=== PATIENT | female | born 1995 | race African-American/Black ===

== ENCOUNTER 2017-12-08 17:10 | Emergency (ER) | payer OTHER ==
[~2017-12-08] VITALS: Ht 162.6 cm; Wt 72.6 kg
[~2017-12-08 17:10] MED LIST: BACTRIM DS 8001 TAB PO; CYCLOBENZAPRINE10 M1 PO; PERCOCET 325 MG1 TA2 PO; ZITHROMAX250 M2 PO
[2017-12-08 18:04] LABS: ABSOLUTE BASOPHIL COUNT 0.1 /CUMM (0.0-0.2); ABSOLUTE EOSINOPHIL COUNT 0.1 /CUMM (0.0-0.7); ABSOLUTE GRANULOCYTE CT 5.1 /CUMM (1.4-6.5); ABSOLUTE MONOCYTE COUNT 0.6 /CUMM (0.10-0.60); BASOPHIL % 0.6 % (0.0-2.0); EOSINOPHIL % 0.7 % (0-5); GRANULOCYTE % 54.3 % (42.2-75.2); HEMATOCRIT 37.8 % (37-47); MEAN CORPUSCULAR HGB 27.9 PG (27.0-31.0); MEAN CORPUSCULAR HGB CONC 33.7 G/DL (33.0-37.0); MEAN CORPUSCULAR VOLUME 82.6 FL (81.0-99.0); MEAN PLATELET VOLUME 8.6 FL (7.4-10.4); PLATELET COUNT 231 /CUMM (130-400); RBC DISTRIBUTION WIDTH 14.9 % (11.5-14.5); RED BLOOD CELL CT 4.57 /CUMM (4.20-5.40); WHITE BLOOD CELL COUNT 9.3 /CUMM (4.8-10.8)
[2017-12-08 18:05] LABS: ABSOLUTE LYMPH COUNT 3.6 /CUMM (1.2-3.4)
--- NOTE | 2017-12-08 18:15 | ED GI/GU/ABDOMINAL COMPLAINT ---
History of Present Illness General Chief Complaint: General Adult Stated Complaint: PT STOMACH PAIN BACK,NAUSEA, Source: patient, old records Exam Limitations: no limitations Vital Signs & Intake/Output Vital Signs & Intake/Output Vital Signs Date Time Temp Pulse Resp B/P B/P Pulse O2 O2 Flow FiO2 Mean Ox Delivery Rate 12/08 2012 98.4 87 20 129/80 98 Room Air 12/08 1823 100 18 138/66 100 Room Air 12/08 1820 Room Air 12/08 1730 96.7 115 15 133/85 99 Room Air Room Air Allergies Coded Allergies: No Known Allergies (12/08/17) Reconcile Medications No Known Home Medications Triage Note: PT TO ED FOR C/C OF LOWER ABD PAIN X 3 DAYS WITH NAUSEA AND VOMITING. REPORTS POSSIBLE CHANCE OF . REPORTS FEELING CONSTIPATED AND INCREASED FREQUENCY OF URINATION. Triage Nurses Notes Reviewed? yes ? N Is pt currently ? No HPI: Patient presents with 2 complaints. First complaint is a migraine headache that she has had for the past 5 days. The pain is throbbing in nature. The pain is constant. Through radiation. There are no aggravating or mitigating factors. She rates the pain at 6 out of 10. Her the complaint is suprapubic crampy pain that she's been having since yesterday. She has had nausea with one episode of vomiting over the past 3 days. She states that she gets nauseous after she eats anything. The crampy pain started yesterday and it is in the suprapubic area. There is no radiation. There are no aggravating or mitigating factors. Patient states that she has a history of ovarian cyst and is concerned that that is what is causing the pain. Past History Travel History Traveled to [place] past 21 day No Medical History Any Pertinent Medical History? see below for history Neurological: NONE EENT: NONE Cardiovascular: NONE Respiratory: NONE Gastrointestinal: NONE Hepatic: NONE Renal: NONE Musculoskeletal: NONE Psychiatric: NONE Endocrine: NONE Blood Disorders: NONE Cancer(s): NONE [employer]/Reproductive: OVARIAN CYST Surgical History Surgical History: non-contributory, N Psychosocial History What is your primary language Palauan Tobacco Use: Never used ETOH Use: denies use Illicit Drug Use: denies illicit drug use Family History Hx Contributory? No Review of Systems Review of Systems Constitutional: Reports: no symptoms. EENTM: Reports: no symptoms. Respiratory: Reports: no symptoms. Cardiovascular: Reports: no symptoms. GI: Reports: see HPI, abdominal pain, nausea, vomiting. Genitourinary: Reports: no symptoms. Musculoskeletal: Reports: no symptoms. Skin: Reports: no symptoms. Neurological/Psychological: Reports: see HPI, headache. Hematologic/Endocrine: Reports: no symptoms. Immunologic/Allergic: Reports: no symptoms. All Other Systems: Reviewed and Negative Physical Exam Physical Exam General Appearance: well developed/nourished, alert, awake Head: atraumatic, normal appearance Eyes: Bilateral: PERRL, EOMI. Ears, Nose, Throat, Mouth: hearing grossly normal, moist mucous membrane Neck: normal inspection, supple, full range of motion Respiratory: normal breath sounds, chest non-tender, no respiratory distress, lungs clear Cardiovascular: regular rate/rhythm, normal peripheral pulses Gastrointestinal: normal bowel sounds, soft, non-tender, no organomegaly Back: normal inspection, normal range of motion Extremities: normal range of motion Neurologic/Psych: no motor/sensory deficits, awake, alert, oriented x 3, normal gait, normal mood/affect Skin: intact, normal color, warm/dry Core Measures ACS in differential dx? No Sepsis Present: No Sepsis Focused Exam Completed? No Progress Differential Diagnosis: ectopic , intrauterine , ovarian cyst, ovarian torsion, threatened AB, UTI/pyelo Plan of Care: Orders Procedure Date/time Status URINE 12/08 1729 Complete URINALYSIS 12/08 173 Complete COMPREHENSIVE METABOLIC PANEL 12/08 1729 Complete CBC WITHOUT DIFFERENTIAL 12/08 1729 Complete Laboratory Tests 12/08/17 1749: Anion Gap 14, Estimated GFR > 60, BUN/Creatinine Ratio 18.3, Glucose 88, Calcium 9.8, Total Bilirubin 0.2, AST 22, ALT 22, Alkaline Phosphatase 44, Total Protein 7.6, Albumin 4.1, Globulin 3.5, Albumin/Globulin Ratio 1.2, CBC w Diff NO MAN DIFF REQ, RBC 4.57, MCV 82.6, MCH 27.9, MCHC 33.7, RDW 14.9 H, MPV 8.6, Gran % 54.3, Lymphocytes % 38.4, Monocytes % 6.0, Eosinophils % 0.7, Basophils % 0.6, Absolute Granulocytes 5.1, Absolute Lymphocytes 3.6 H, Absolute Monocytes 0.6, Absolute Eosinophils 0.1, Absolute Basophils 0.1 06/06/18 1736: Urine Color YEL, Urine Clarity CLEAR, Urine pH 7.5, Ur Specific [place] 1.010, Urine Protein NEG, Urine Ketones NEG, Urine Nitrite NEG, Urine Bilirubin NEG, Urine Urobilinogen 0.2, Ur Leukocyte Esterase NEG, Ur Microscopic EXAM NOT REQUIRED, Urine Hemoglobin NEG, Urine Glucose NEG, Urine Test NEGATIVE Diagnostic Imaging: Viewed by Me: Ultrasound. Discussed w/RAD: Ultrasound. Radiology Impression: PATIENT: CHUN TAYLOR PRESENT AGE: 22 PATIENT ACCOUNT NO: [id number] : 93 LOCATION: [facility] ORDERING PHYSICIAN: Cornelius Durán MD SERVICE DATE: 12/08/17 EXAM TYPE: US - US-TRANSVAGINAL EXAMINATION: US TRANSVAGINAL CLINICAL INFORMATION: Adnexal pain. COMPARISON: Transvaginal ultrasound 04/25/2016 TECHNIQUE: Transvaginal: As per M.D. request. Transvaginal exam is limited due to bowel. Transabdominal: Not adequate for visualization. Spectral Doppler and color Doppler exam was utilized. LMP: 11/16/2017 FINDINGS: UTERUS: Unremarkable. Uterus measures 7 x 3.8 x 4.1 cm. Cervical length 2.9 cm. Endometrial thickness 0.5 cm. ADNEXA: Ovarian vascularity:Doppler demonstrates both arterial and venous vascular flow in the right and left ovary. No evidence of ovarian torsion. Right Ovary: 3.2 x 2 x 2.1 cm. Volume 6.8 mL. Dominant follicle measuring 1.9 x 1.2 x 1.2 cm. Left Ovary: 3.6 x 2.2 x 2.6 cm. Volume 10.5 mL. Dominant follicle 2 x 1.3 x 1.6 cm. This is the corpus luteum cyst. Cul-de-sac: No Fluid IMPRESSION: No acute abnormality ultrasound pelvis. DICTATED BY: Charly Melgoza MD DATE/TIME DICTATED: 12/08/172031 SET UP MECHANIC:CHLOE DATE/TIME TRANSCRIBED:12/08/172031 CONFIDENTIAL, DO NOT COPY WITHOUT APPROPRIATE AUTHORIZATION. <Electronically signed in Other Vendor System> SIGNED BY: Charly Melgoza MD 12/08/172041 Initial ED EKG: none Comments: Patient feels better after IV Toradol. Lab work is negative, awaiting ultrasound. Departure Departure Disposition: HOME OR SELF CARE Condition: Stable Clinical Impression Primary Impression: Headache Secondary Impressions: Lower abdominal pain, unspecified Referrals: Patient Has No Primary Care Dr (PCP/Family) Additional Instructions: RETURN IF SYMPTOMS WORSEN OR FOR ANY CONCERNS Departure Forms: Customer Survey General Discharge Information Prescriptions: Current Visit Scripts No Known Home Medications
[2017-12-08 20:13] VITALS: BP 129/80
--- NOTE | 2017-12-08 20:42 | ULTRASOUND REPORT ---
EXAMINATION: US TRANSVAGINAL CLINICAL INFORMATION: Adnexal pain. COMPARISON: Transvaginal ultrasound 04/25/2016 TECHNIQUE: Transvaginal: As per M.D. request. Transvaginal exam is limited due to bowel. Transabdominal: Not adequate for visualization. Spectral Doppler and color Doppler exam was utilized. LMP: 11/16/2017 FINDINGS: UTERUS: Unremarkable. Uterus measures 7 x 3.8 x 4.1 cm. Cervical length 2.9 cm. Endometrial thickness 0.5 cm. ADNEXA: Ovarian vascularity:Doppler demonstrates both arterial and venous vascular flow in the right and left ovary. No evidence of ovarian torsion. Right Ovary: 3.2 x 2 x 2.1 cm. Volume 6.8 mL. Dominant follicle measuring 1.9 x 1.2 x 1.2 cm. Left Ovary: 3.6 x 2.2 x 2.6 cm. Volume 10.5 mL. Dominant follicle 2 x 1.3 x 1.6 cm. This is the corpus luteum cyst. Cul-de-sac: No Fluid IMPRESSION: No acute abnormality ultrasound pelvis.
[2017-12-08] MEDS ORDERED: PERCOCET 5-3251 EACH PO (20:50)
== END 2017-12-08 20:52 ==
LOC: ERH 17:10
PROVIDERS: Physician Assistant
DX: R51 Headache (principal); R10.30 Lower abdominal pain, unspecified
CPT/HCPCS: 81003; 81025; 96374; J1885